=== PATIENT | male | born 1975 | race Caucasian/White ===

== ENCOUNTER 2017-01-23 12:07 | Emergency (ER) | payer BC ==
[~2017-01-23] VITALS: Ht 188 cm; Wt 133.8 kg
[~2017-01-23 12:07] MED LIST: ACET-93 PO; CETI10TA20 PO; FLUT9.9S NS; GABA-486 PO; IBUP-1780 PO; LISI1TAB6 PO; MECL-106 PO
--- OUTSIDE RECORDS SUMMARY | 2017-01-23 12:13 | XMS REPORT ---
Author CONRAD Taylor Organization [employer] Address Unknown Phone Unavailable Care Team Providers Care Grievance Manager Name Role Phone CONRAD YOUNG CP Unavailable Allergies No Known Allergies Problems Problem Type Condition ICD-9 Code Onset Dates Condition Status Problem Depressive disorder, not elsewhere classified 311 Active Problem Shortness of breath 786.05 Active Problem Essential hypertension, benign 401.1 Active Assessment Dental examination V72.2 Active Medications No Known Medications Procedures Procedure Coding System Code Date Billing Notes on claim CPT-4 EC109 November 23, 2014 Results No Known Results Summary Purpose [employer] Submission
--- OUTSIDE RECORDS SUMMARY | 2017-01-23 12:14 | XMS REPORT ---
Author Author POLA DAY Organization [employer] Address Unknown Phone Unavailable Care Team Providers Care Rail Specialist Name Role Phone POLA DAY CP Unavailable Allergies No Known Allergies Problems Problem Type Condition Code Onset Dates Condition Status Problem Depressive disorder, not elsewhere classified 311 Active Problem Shortness of breath 786.05 Active Problem Essential hypertension, benign 401.1 Active Assessment Encounter for immunization Z23 Active Medications No Known Medications Procedures Procedure Coding System Code Date SINGLE IMMUNIZATION ADMIN CPT-4 20093 Jun 12, 2015 FLUARIX QUAD (3 & UP)-GSK-2014 CPT-4 45238 Jun 12, 2015 Results No Known Results Immunizations Vaccine Administration Date FLUARIX QUAD (3 & UP)-GSK-2014Jun 12, 2015 Summary Purpose [employer] Submission
--- OUTSIDE RECORDS SUMMARY | 2017-01-23 12:14 | XMS REPORT | Continuity of Care Document ---
Demographics Preferred Language Unknown Marital Status Unknown Caodaism Affiliation Unknown Race Unknown Ethnic Group Unknown Author Author [facility] Address Unknown Phone Unavailable Allergies Active Description Code Type Severity Reaction Onset Reported/Identified Relationship to Patient Clinical Status Yes guaifenesin Drug Allergy 09/27/2009 Yes cortisone [id number] Drug Allergy Severe INCREASED BLOOD 07/10/2015 Yes guaifenesin [id number] Drug Allergy Moderate NAUSEA 07/10/2015 Yes diphenhydramine [id number] Drug Allergy Mild CAUSES SLEEPINE 07/10/2015 Medications Problems Date Dx Coded Attending Type Code Diagnosis Diagnosed By 09/27/2009 924.10 CONTUSION OF, LOWER LEG 09/27/2009 V06.5 DT, TETANUS-DIPHTHERIA [Td] ,TDAP 09/27/2009 924.10 CONTUSION OF, LOWER LEG 09/27/2009 V06.5 DT, TETANUS-DIPHTHERIA [Td] ,TDAP 09/27/2009 924.10 CONTUSION OF, LOWER LEG 09/27/2009 V06.5 DT, TETANUS-DIPHTHERIA [Td] ,TDAP 01/04/2010 701.9 UNSPECIFIED HYPERTROPHIC AND ATROPHIC CONDITIONS OF SKIN 01/04/2010 V77.91 SCREENING FOR LIPOID DISORDERS 01/04/2010 V81.2 SPECIAL SCREENING FOR OTHER AND UNSPECIFIED CARDIOVASCULAR CONDITIONS 01/04/2010 701.9 UNSPECIFIED HYPERTROPHIC AND ATROPHIC CONDITIONS OF SKIN 01/04/2010 V77.91 SCREENING FOR LIPOID DISORDERS 01/04/2010 V81.2 SPECIAL SCREENING FOR OTHER AND UNSPECIFIED CARDIOVASCULAR CONDITIONS 01/04/2010 701.9 UNSPECIFIED HYPERTROPHIC AND ATROPHIC CONDITIONS OF SKIN 01/04/2010 V77.91 SCREENING FOR LIPOID DISORDERS 01/04/2010 V81.2 SPECIAL SCREENING FOR OTHER AND UNSPECIFIED CARDIOVASCULAR CONDITIONS 07/01/2012 311 DEPRESSIVE DISORDER NOS 07/01/2012 786.05 SHORTNESS OF BREATH 07/01/2012 311 DEPRESSIVE DISORDER NOS 07/01/2012 786.05 SHORTNESS OF BREATH 07/01/2012 311 DEPRESSIVE DISORDER NOS 07/01/2012 786.05 SHORTNESS OF BREATH 07/31/2012 401.1 HYPERTENSION, BENIGN ESSENTIAL 07/31/2012 401.1 HYPERTENSION, BENIGN ESSENTIAL 07/10/2015 [place] DO, GOLD D Ot Z01.818 07/11/2015 ANAND DO, GOLD D Ot Z01.818 07/11/2015 ANAND DO, GOLD D Ot D12.3 07/11/2015 [place] DO, GOLD D Ot R19.4 07/11/2015 [place] DO, GOLD D Ot Z80.0 11/01/2015 SIVAKUMAR NEVES, GABBY Bhatia Ot G47.10 HYPERSOMNIA, UNSPECIFIED 11/01/2015 SIVAKUMAR NEVES, GABBY Bhatia Ot R06.83 SNORING 11/07/2015 SIVAKUMAR NEVES, GABBY Bhatia Ot G47.10 11/07/2015 SIVAKUMAR NEVES, GABBY Bhatia Ot R06.83 Procedures Results Encounters ACCT No. Visit Date/Time Discharge Status Pt. Type Provider Facility Loc./Unit Complaint [id number] 09/10/2012 13:22:00 09/10/2012 23: 59:59 CLS Outpatient [id number] 07/31/2012 11:07:00 07/31/2012 23: 59:59 CLS Outpatient [id number] 07/09/2012 14:04:00 07/09/2012 23: 59:59 CLS Outpatient
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
--- NOTE | 2017-01-23 13:22 | Diagnostic Imaging Report ---
Three views of the right knee. INDICATION: Injury. FINDINGS: No fracture, dislocation, or radiopaque foreign body. No suprapatellar effusion is evident. IMPRESSION: Unremarkable exam. Dictated by: Dictated on workstation # [id number]
--- NOTE | 2017-01-23 13:25 | Diagnostic Imaging Report ---
Two views of the right femur. INDICATION: Injury. FINDINGS: No fracture, dislocation or radiopaque foreign body. IMPRESSION: No fracture seen. Dictated by: Dictated on workstation # [id number]
--- NOTE | 2017-01-23 13:28 | Diagnostic Imaging Report ---
AP and frog lateral views of the right hip. INDICATION: Injury. FINDINGS: There is no fracture, dislocation or radiopaque foreign body. The right hip joint is unremarkable. IMPRESSION: Unremarkable exam. Dictated by: Dictated on workstation # [id number]
[2017-01-23] MEDS ORDERED: TRAM-42 PO (13:33)
--- NOTE | 2017-01-23 13:35 | Diagnostic Imaging Report ---
AP view of the pelvis. INDICATION: Injury. FINDINGS: No fracture, dislocation or radiopaque foreign body is seen in the pelvis or along the hip or SI joints. Satisfactory joint alignment is noted. No significant arthritic change seen. Calcifications of the pelvis are likely phleboliths. IMPRESSION: Unremarkable exam. Dictated by: Dictated on workstation # [id number]
[2017-01-23 14:16] VITALS: BP 140/88
== END 2017-01-23 14:17 | disposition home or self-care (01) ==
LOC: EDUNIT# 12:07 → ER 12:10
DX: S83.91XA Sprain of unspecified site of right knee, initial encounter (principal); M54.5 Low back pain; X50.0XXA Overexertion from strenuous movement or load, initial encounter
CPT/HCPCS: 72170; 73502; 73552; 73562; 99283

== ENCOUNTER → 2017-08-07 | Outpatient (CLI) | payer BC ==
[~2017-08-07] MED LIST changes: +TRAM-42 PO
--- NOTE | 2017-08-07 14:17 | Diagnostic Imaging Report ---
INDICATION: Shortness of air, sinus infection. TECHNIQUE: Two view chest 2:29 PM CORRELATION STUDY: None FINDINGS: The heart size, mediastinal configuration and pulmonary vasculature are within normal limits. The lungs are clear with no consolidating infiltrate. There is no significant pleural effusion or pneumothorax. Minimal rightward curvature thoracic spine. IMPRESSION: 1. No radiographic evidence for acute abnormality of the chest. Dictated by: Dictated on workstation # [id number]
== END ==
LOC: RAD 13:48
PROVIDERS: ATTEND Nurse Practitioner Family
DX: J30.9 Allergic rhinitis, unspecified (principal); R06.02 Shortness of breath
CPT/HCPCS: 71046

== ENCOUNTER → 2017-10-03 | Outpatient (CLI) | payer BC ==
[~2017-10-03] MED LIST changes: +RT-ALBUTEROL SULF 2.5 MG/3 ML PRE-MIX VIAL INH ONE; +RT-ALBUTEROL SULF 2.5 MG/3 ML PRE-MIX VIAL ONE
== END ==
LOC: RT 12:57
PROVIDERS: ATTEND Nurse Practitioner Family
DX: J30.9 Allergic rhinitis, unspecified (principal); R05 Cough; R06.00 Dyspnea, unspecified; R53.83 Other fatigue
CPT/HCPCS: 94060; 94726; 94729

== ENCOUNTER 2018-02-14 05:59 | Day surgery (SDC) | payer BC ==
[2018-02-14] VITALS (9 sets, daily range): BP systolic 121–130; BP diastolic 71–82
[~2018-02-14] VITALS: Ht 188 cm; Wt 90.7 kg
[~2018-02-14 05:59] MED LIST changes: -RT-ALBUTEROL SULF 2.5 MG/3 ML PRE-MIX VIAL INH ONE; -RT-ALBUTEROL SULF 2.5 MG/3 ML PRE-MIX VIAL ONE
[2018-02-14] MEDS ORDERED: RT-ALBUINH (06:15)
[2018-02-14] MEDS ORDERED: FLUT16SP22 (06:15)
[2018-02-14] MEDS ORDERED: SERT50TA2 (06:15)
[2018-02-14] MEDS ORDERED: MONT10TA24 (06:15)
[2018-02-14] MEDS ORDERED: LOSA100T28 (06:15)
[2018-02-14 06:40] LABS: BASOPHILS % (AUTO) 0 % (0-10); EOSINOPHILS % (AUTO) 0 % (0-10); HEMATOCRIT 43 % (40-54); HEMOGLOBIN 15.7 G/DL (13.3-17.7); LYMPHOCYTES # (AUTO) 1.3 X 10^3 (1.0-4.0); LYMPHOCYTES % (AUTO) 16 % (12-44); MEAN CORPUSCULAR HEMOGLOBIN 31 PG (25-34); MEAN CORPUSCULAR HGB CONC 36 G/DL (32-36); MEAN CORPUSCULAR VOLUME 85 FL (80-99); MONOCYTES # (AUTO) 0.3 X 10^3 (0.0-1.0); MONOCYTES % (AUTO) 3 % (0-12); NEUTROPHILS # (AUTO) 6.8 X 10^3 (1.8-7.8); NEUTROPHILS % (AUTO) 81 % (42-75); PLATELET COUNT 231 10^3/uL (130-400); RED CELL DISTRIBUTION WIDTH 14.1 % (10.0-14.5); WHITE BLOOD COUNT 8.4 10^3/uL (4.3-11.0)
[2018-02-14 06:45] LABS: BILIRUBIN,URINE NEGATIVE (NEGATIVE); CLARITY,URINE VERY CLOUDY; COLOR,URINE YELLOW; GLUCOSE, URINE (UA) NEGATIVE (NEGATIVE); KETONES,URINE NEGATIVE (NEGATIVE); LEUKOCYTE ESTERASE ,URINE NEGATIVE (NEGATIVE); NITRITE,URINE NEGATIVE (NEGATIVE); PH,URINE 7 (5-9); PROTEIN,URINE 1+ (NEGATIVE); UROBILINOGEN,URINE NORMAL (NORMAL)
[2018-02-14 06:56] LABS: AMORPHOUS SEDIMENT,UR LARGE AMOR PHOSPHATE /LPF; BACTERIA,URINE NEGATIVE /HPF
[2018-02-14 06:59] LABS: ALANINE AMINOTRANSFERASE 45 U/L (0-55); ALBUMIN 4.6 GM/DL (3.2-4.5); ALKALINE PHOSPHATASE 96 U/L (40-136); BILIRUBIN,TOTAL 0.7 MG/DL (0.1-1.0); BUN/CREATININE RATIO 23; CALCIUM 9.9 MG/DL (8.5-10.1); CARBON DIOXIDE 20 MMOL/L (21-32); CHLORIDE 110 MMOL/L (98-107); GFR ESTIMATED > 60; GLUCOSE 149 MG/DL (70-105); LIPASE 29 U/L (8-78); POTASSIUM 4.1 MMOL/L (3.6-5.0); SODIUM 140 MMOL/L (135-145); TOTAL PROTEIN 7.8 GM/DL (6.4-8.2)
--- NOTE | 2018-02-14 07:03 | ED Abdominal Pain ---
General Chief Complaint: Abdominal/GI Problems Stated Complaint: ABD PAIN Nursing Triage Note: patient reports epigastric pain radiating to his back starting after eating mushroom pizza at 2100 last night. patient reports having a history of GERD and not taking his prilosec as 'I didn't think I needed it' for a couple days. Patient reports having a similar event about 1 year ago and having a 'green lizard' that helped. Patient reports having diarrhea x 1 and emesis x 1. denies SOA, diaphoresis. Sepsis Screen: No Definite Risk History of Present Illness Date Seen by Provider: Feb 14, 2018 Time Seen by Provider: 07:00 Initial Comments The patient is a 42-year-old white male who presents with complaints of abdominal pain and vomiting. He reports that last evening he had a pizza at about 2100 hours. He then had abdominal discomfort through the night. He states he has a history of GERD but has not been troubled lately and had not taken his Prilosec. After arriving here he vomited and materials were recognizable from his pizza including sausage and black olives. Timing/Duration: 12 Hours Severity/Quality: Moderate Location: Epigastric Radiation: No Radiation Modifying Factors: Improves With Eating Allergies and Home Medications Allergies Coded Allergies: cortisone (Verified Allergy, Severe, INCREASED BLOOD PRESSURE, 07/10/15) guaifenesin (Verified Allergy, Intermediate, NAUSEA, 07/10/15) diphenhydramine (Verified Allergy, Mild, CAUSES SLEEPINESS, 07/10/15) acetaminophen (Verified Allergy, Unknown, 01/23/17) hydrocodone (Verified Allergy, Unknown, 01/23/17) Uncoded Allergies: MUSCLE REXLANT (Allergy, Unknown, 01/23/17) Home Medications Acetaminophen 500 Mg Tablet, 500 MG PO DAILY, (Reported) Cetirizine HCl 10 Mg Tablet, 10 MG PO DAILY, (Reported) Fluticasone Propionate 9.9 Ml [place].susp, 2 SPR NS DAILY, (Reported) Gabapentin 100 Mg Capsule, 100 MG PO TID, (Reported) Ibuprofen 800 Mg Tablet, 800 MG PO BID PRN for PAIN, (Reported) Lisinopril/Hydrochlorothiazide 1 Each Tablet, 1 EACH PO DAILY, (Reported) Meclizine HCl 25 Mg Tablet, 25 MG PO DAILY, (Reported) Tramadol HCl 50 Mg Tablet, 50 MG PO Q4H Prescribed by: DONNA COSME on 01/23/17 1333 Patient Home Medication List Home Medication List Reviewed: Yes Review of Systems Constitutional: see HPI EENTM: No Symptoms Reported Respiratory: No Symptoms Reported Cardiovascular: No Symptoms Reported Gastrointestinal: See HPI Genitourinary: No Symptoms Reported Musculoskeletal: no symptoms reported Skin: no symptoms reported Psychiatric/Neurological: No Symptoms Reported Endocrine: No Symptoms Reported Hematologic/Lymphatic: No Symptoms Reported Past Pskgzgp-Dfbnbd-Vpfanw Hx Patient Social History Alcohol Use: Denies Use Recreational Drug Use: No Smoking Status: Never a Smoker Recent Foreign Travel: No Contact w/Someone Who Travel: No Recent Infectious Disease Expo: No Recent Hopitalizations: No Physical Abuse: No Sexual Abuse: No Immunizations Up To Date Date of Influenza Vaccine: May 11, 2015 Past Medical History Surgeries: Yes (DENTAL, EGD) Eye Surgery, Orthopedic Respiratory: No Cardiac: Yes Hypertension Neurological: No Reproductive Disorders: No Genitourinary: No Gastrointestinal: No Musculoskeletal: Yes (RIGHT HIP/SI JOINT PAIN) Chronic Back Pain Endocrine: No HEENT: No Cancer: No Psychosocial: No Nursing Suicide Risk Score: 0 Integumentary: No Blood Disorders: No Physical Exam Vital Signs Vital Signs - First Documented 02/14/18 06:09 Temp 98.4 Pulse 73 Resp 18 B/P (MAP) 168/126 (140) Pulse Ox 100 Capillary Refill : Less Than 3 Seconds Height/Weight/BMI Height: 6'2.00" Weight: 200lbs. oz. 90.322094et; 37.87 BMI Method:Stated General Appearance: moderate distress HEENT: normal ENT inspection Neck: full range of motion Respiratory: chest non-tender, lungs clear, normal breath sounds, no respiratory distress, no accessory muscle use Cardiovascular: normal peripheral pulses, regular rate, rhythm, no edema, no gallop, no JVD, no murmur Gastrointestinal: normal bowel sounds, non tender, soft, no organomegaly, no pulsatile mass Extremities: normal range of motion, non-tender, normal inspection, no pedal edema, no calf tenderness, normal capillary refill, pelvis stable Back: normal inspection Neurologic/Psychiatric: felt hanger II-XII nml as tested, no motor/sensory deficits, alert, normal mood/affect, oriented x 3 Lymphatic: no adenopathy Progress/Results/Core Measures Results/Orders Lab Results Laboratory Tests Test 7/21/18 06:25 02/14/18 06:38 Range/Units White Blood Count 8.4 4.3-11.0 10^3/uL Red Blood Count 5.10 4.35-5.85 10^6/uL Hemoglobin 15.7 13.3-17.7 G/DL Hematocrit 43 40-54 % Mean Corpuscular Volume 85 80-99 FL Mean Corpuscular Hemoglobin 31 25-34 PG Mean Corpuscular Hemoglobin Concent 36 32-36 G/DL Red Cell Distribution Width 14.1 10.0-14.5 % Platelet Count 231 130-400 10^3/uL Mean Platelet Volume 10.0 7.4-10.4 FL Neutrophils (%) (Auto) 81 H 42-75 % Lymphocytes (%) (Auto) 16 12-44 % Monocytes (%) (Auto) 3 0-12 % Eosinophils (%) (Auto) 0 0-10 % Basophils (%) (Auto) 0 0-10 % Neutrophils # (Auto) 6.8 1.8-7.8 X 10^3 Lymphocytes # (Auto) 1.3 1.0-4.0 X 10^3 Monocytes # (Auto) 0.3 0.0-1.0 X 10^3 Eosinophils # (Auto) 0.0 0.0-0.3 10^3/uL Basophils # (Auto) 0.0 0.0-0.1 10^3/uL Sodium Level 140 135-145 MMOL/L Potassium Level 4.1 3.6-5.0 MMOL/L Chloride Level 110 H 98-107 MMOL/L Carbon Dioxide Level 20 L 21-32 MMOL/L Anion Gap 10 5-14 MMOL/L Blood Urea Nitrogen 21 H 7-18 MG/DL Creatinine 0.90 0.60-1.30 MG/DL Estimat Glomerular Filtration Rate > 60 BUN/Creatinine Ratio 23 Glucose Level 149 H 70-105 MG/DL Calcium Level 9.9 8.5-10.1 MG/DL Total Bilirubin 0.7 0.1-1.0 MG/DL Aspartate Amino Transf (AST/SGOT) 23 5-34 U/L Alanine Aminotransferase (ALT/SGPT) 45 0-55 U/L Alkaline Phosphatase 96 40-136 U/L Total Protein 7.8 6.4-8.2 GM/DL Albumin 4.6 H 3.2-4.5 GM/DL Lipase 29 8-78 U/L Urine Color YELLOW Urine Clarity VERY CLOUDY H Urine pH 7 5-9 Urine Specific [place] 1.010 L 1.016-1.022 Urine Protein 1+ H NEGATIVE Urine Glucose (UA) NEGATIVE NEGATIVE Urine Ketones NEGATIVE NEGATIVE Urine Nitrite NEGATIVE NEGATIVE Urine Bilirubin NEGATIVE NEGATIVE Urine Urobilinogen NORMAL NORMAL MG/DL Urine Leukocyte Esterase NEGATIVE NEGATIVE Urine RBC (Auto) NEGATIVE NEGATIVE Urine RBC NONE /HPF Urine WBC NONE /HPF Urine Crystals PRESENT H /LPF Urine Amorphous Sediment LARGE FRANDY PHOSPHATE H /LPF Urine Bacteria NEGATIVE /HPF Urine Casts NONE /LPF Urine Mucus NEGATIVE /LPF Urine Culture Indicated NO My Orders Orders - ERNESTINA GAMBINO MD Cbc With Automated Diff (02/14/18 06:26) Comprehensive Metabolic Panel (02/14/18 06:26) Lipase (02/14/18 06:26) Ua Culture If Indicated (02/14/18 06:26) Pantoprazole Injection (Protonix Injecti (02/14/18 07:15) Abdomen/Kub 1view (02/14/18 07:04) Ondansetron Injection (Zofran Injectio (02/14/18 08:00) Ns Iv 1000 Ml (Sodium Chloride 0.9%) (02/14/18 08:15) Promethazine Injection (Phenergan Injec (02/14/18 08:45) Ct Abdomen/Pelvis W (02/14/18 08:41) Iohexol Injection (Omnipaque 350 Mg/Ml 1 (02/14/18 09:15) Sodium Chloride Flush (Catheter Flush Sy (02/14/18 09:15) Ns (Ivpb) (Sodium Chloride 0.9%) (02/14/18 09:15) Pharmacy Communication (Pharmacy Communi (02/14/18 09:01) Medications Given in ED Current Medications Medications Dose Ordered Sig/Sherry Route Start Time Stop Time Status Last Admin Dose Admin Iohexol 100 ml ONCE ONCE IV 02/14/18 09:15 02/14/18 09:16 DC 02/14/18 09:18 100 ML Ondansetron HCl 8 mg ONCE ONCE IVP 02/14/18 08:00 02/14/18 08:01 DC 02/14/18 08:04 8 MG Pantoprazole 40 mg ONCE ONCE IV 02/14/18 07:15 02/14/18 07:16 DC 02/14/18 07:17 40 MG Promethazine HCl 25 mg ONCE ONCE IVP 02/14/18 08:45 02/14/18 08:46 DC 02/14/18 08:50 25 MG Sodium Chloride 10 ml NEEDED PRN IV 02/14/18 09:15 02/14/18 09:19 10 ML Sodium Chloride 250 ml ONCE ONCE IV 02/14/18 09:15 02/14/18 09:16 DC 02/14/18 09:18 80 ML Vital Signs/I&O 02/14/18 06:09 Temp 98.4 Pulse 73 Resp 18 B/P (MAP) 168/126 (140) Pulse Ox 100 Blood Pressure Mean: 140 Departure Communication (Admissions) 1010 CT report came back positive for gallstones. Discussed with Dr. Hdz and he will come to the emergency room to evaluate. Dr. Hdz has been to the emergency room. (1111) patient will go to the OR for cholecystectomy. Impression Primary Impression: cholecystitis Disposition: ADMITTED INPATIENT Condition: Stable/Unchanged Admissions Decision to Admit Reason: Admit from ER (General) Time/Decision to Admit Time: 11:08 Departure-Patient Inst. Referrals: EVERTON AGUILERA MD (PCP) Primary Care Physician OMAR RAPP (Family) Primary Care Physician ERNESTINA GAMBINO MD Feb 14, 2018 07:03
[2018-02-14] MEDS ORDERED: PANTOPRAZOLE 40 MG/10 ML (PROTONIX) VIAL IV ONE (07:15)
--- NOTE | 2018-02-14 07:46 | Diagnostic Imaging Report ---
INDICATION: Abdominal pain with nausea. 2 views were obtained. FINDINGS: The lung bases are clear. Bowel gas pattern is nonspecific. There is no free air. There are no abnormal abdominal calcifications. IMPRESSION: Nonspecific bowel gas pattern. Dictated by: Dictated on workstation # [id number]
[2018-02-14] MEDS ORDERED: ONDANSETRON 4 MG/2 ML (SDV) Z0FRAN IVP ONE ×2 (08:00→15:15)
[2018-02-14] MEDS ORDERED: NS IV 1000 ML 1,000 ML IV SCH (08:15)
[2018-02-14] MEDS ORDERED: PROMETHAZINE INJ 25 MG/ML (PHENERGAN) AMP IVP ONE (08:45)
[2018-02-14] MEDS ORDERED: IOHEXOL 350 MG/ML 100 ML (OMNIPAQUE 350) VIAL IV ONE (09:15)
[2018-02-14] MEDS ORDERED: CATHETER FLUSH 10 ML SYR IV PRN (09:15)
[2018-02-14] MEDS ORDERED: NS 250 ML (IVPB) BAG IV ONE (09:15)
--- NOTE | 2018-02-14 09:26 | Diagnostic Imaging Report ---
PROCEDURE: CT abdomen and pelvis with contrast. TECHNIQUE: Multiple contiguous axial images were obtained through the abdomen and pelvis after administration of intravenous contrast. INDICATION: Abdominal pain with nausea and vomiting. FINDINGS: The heart size is normal. The lungs are clear. The liver is normal in size without focal lesions. There is cholelithiasis. There is some questionable gallbladder wall thickening. The spleen is normal. Pancreas and adrenal glands are unremarkable. Kidneys are normal in appearance. The aorta is nonaneurysmal. The appendix is normal. Bowel gas pattern is nonspecific. The bladder is normal. There is no pelvic mass or adenopathy. There is no ascites. There is no free air. There are no focal inflammatory changes. There are minimal degenerative changes in the spine. IMPRESSION: Cholelithiasis with questionable gallbladder wall thickening. Recommend clinical correlation, if warranted followup with right upper quadrant ultrasound. No other acute abnormality in the abdomen or pelvis. Specifically, the appendix is normal in appearance. Dictated by: Dictated on workstation # [id number]
--- OUTSIDE RECORDS SUMMARY | 2018-02-14 10:52 | XMS REPORT ---
Author Author HECTOR CONRAD [facility] QUESADA Address [address] [place] [address] Care Team Providers Care Adjunct Professor Of English Name Role Phone CONRAD YOUNG Unavailable PROBLEMS Type Condition ICD9-CM Code [id number] Code Onset Dates Condition Status SNOMED Code Problem Depressive disorder, not elsewhere classified 311 Active 87042061 Problem Essential hypertension, benign 401.1 Active 1234351 Problem Shortness of breath 786.05 Active 110852834 ALLERGIES Substance Reaction Event Type Date Status Cortisone Unknown Drug Allergy May, Active Guaifenesin Unknown Drug Allergy May, Active hydrocodone Unknown Non Drug Allergy May, Active horse radish Unknown Non Drug Allergy May, Active aspirin Unknown Non Drug Allergy May, Active ENCOUNTERS Encounter Location Date Diagnosis [facility] [id number] [id number] [id number] November, Dental examination Z01.20 [facility] [address] [id number], [place] [id number] November, Dental examination Z01.20 [facility] [address] [id number], [place] [id number] May, Dental examination Z01.20 [facility] [address] [facility] [address] [id number], [place] [id number] Apr, Dental examination Z01.20 [facility] [address] [facility] [address] [id number], [place] [id number] Jan, Dental examination Z01.20 [facility] [address] [facility] [address] [id number][place] [id number] November, Dental examination Z01.20 [facility] [id number], [place] [id number] Oct, Dental examination Z01.20 [facility] Akers0 [facility] [id number], [place] [id number] Sep, Encounter for dental examination and cleaning without abnormal findings Z01.20 [facility] LOPEZALVARO [address] [facility] [id number] C[place] [id number] May, Encounter for immunization Z23 [facility] BENOITQUESADA Oswald[address] [place] [address] [id number], [place] [id number] Jan, Dental examination V72.2 [facility] BENOITQU[facility]ADA Judy [facility] [id number], [place] [id number] Oct, Dental examination V72.2 [facility] [id number] [place] [phone] Oct, [facility] [id number] [place] [phone] Oct, [facility] [id number] [place] [id number] Aug, [facility] [address] [place] [phone] Jul, [facility] [id number] [place] [id number] Jun, [facility] [address] [address] Jun, [facility] [id number] [address] Dec, [facility] [id number] [place] [phone] Dec, IMMUNIZATIONS No Known Immunizations SOCIAL HISTORY Never Assessed REASON FOR VISIT Fredrick PLAN OF CARE Activity Details Follow Up 6 Months Reason: VITAL SIGNS Blood pressure systolic 124 mmHg 2017-06-18 Blood pressure diastolic 75 mmHg 2017-06-18 MEDICATIONS Medication Instructions Dosage Frequency Start Date End Date Duration Status sertraline 50 mg 1.5 tablet by Oral route 1 time per day Aug, Active Flonase Active Tylenol Active Ibuprofen Active Lisinopril-Hydrochlorothiazide Active RESULTS No Results PROCEDURES Procedure Date Ordered Result Body Site PERIODIC ORAL EXAMINATION Jun 18, 2017 BITEWINGS - FOUR FILMS Jun 18, 2017 TOPICAL FLUORIDE VARNISH Jun 18, 2017 PROPHYLAXIS - ADULT Jun 18, 2017 INSTRUCTIONS MEDICATIONS ADMINISTERED No Known Medications MEDICAL (GENERAL) HISTORY Type Description Date Medical History HBP Medical History Currently on antibiotics for Bronchitis 06/18/2017 Surgical History right ring finger for torn ligament 07/2016
--- OUTSIDE RECORDS SUMMARY | 2018-02-14 10:52 | XMS REPORT ---
Author Author CONRAD YOUNG [facility] Address [address] [place] [address] Care Team Providers Care Generator Operator Name Role Phone CONRAD YOUNG Unavailable PROBLEMS Type Condition ICD9-CM Code [id number] Code Onset Dates Condition Status SNOMED Code Problem Encounter for dental examination and cleaning without abnormal findings Z01.20 Active 874441436 Problem Depressive disorder, not elsewhere classified 311 Active 96628844 Problem Essential hypertension, benign 401.1 Active 2161881 Problem Shortness of breath 786.05 Active 327687805 ALLERGIES Substance Reaction Event Type Date Status Cortisone Unknown Drug Allergy November, Active Guaifenesin Unknown Drug Allergy November, Active horse radish Unknown Non Drug Allergy November, Active aspirin Unknown Non Drug Allergy November, Active hydrocodone Unknown Non Drug Allergy November, Active SOCIAL HISTORY Never Assessed PLAN OF CARE Activity Details Follow Up Restoratives. 6month prophy and LEON Reason: VITAL SIGNS Blood pressure systolic 131 mmHg 2016-12-09 Blood pressure diastolic 71 mmHg 2016-12-09 MEDICATIONS Medication Instructions Dosage Frequency Start Date End Date Duration Status Lisinopril-Hydrochlorothiazide Active sertraline 50 mg 1.5 tablet by Oral route 1 time per day Aug, Active Flonase Active Ibuprofen Active Tylenol Active RESULTS No Results PROCEDURES Procedure Date Ordered Result Body Site PROPHYLAXIS - ADULT December 09, 2016 TOPICAL FLUORIDE VARNISH December 09, 2016 IMMUNIZATIONS No Known Immunizations MEDICAL (GENERAL) HISTORY Type Description Date Medical History HBP Surgical History right ring finger for torn ligament 07/2016
--- OUTSIDE RECORDS SUMMARY | 2018-02-14 10:52 | XMS REPORT ---
Author Author NEFTALI MOROCHO [facility] QUESADA Address [address] [place] [address] Care Team Providers Care Sampler Radioactive Waste Name Role Phone NEFTALI MOROCHO Unavailable PROBLEMS Type Condition ICD9-CM Code [id number] Code Onset Dates Condition Status SNOMED Code Problem Depressive disorder, not elsewhere classified 311 Active 94198858 Problem Essential hypertension, benign 401.1 Active 3421187 Problem Shortness of breath 786.05 Active 292880072 ALLERGIES Substance Reaction Event Type Date Status Cortisone Unknown Drug Allergy Apr, Active Guaifenesin Unknown Drug Allergy Apr, Active horse radish Unknown Non Drug Allergy Apr, Active aspirin Unknown Non Drug Allergy Apr, Active hydrocodone Unknown Non Drug Allergy Apr, Active ENCOUNTERS Encounter Location Date Diagnosis [facility] [id number] [facility] [id number] [phone] November, [address] [id number], [place] [id number] May, Dental examination Z01.[address] [id number], [place] [id number] Apr, Dental examination Z01.20 [place] [address] [facility] [id number], [place] [id number] Jan, Dental examination Z01.20 [place] [address] [facility] [id number], [place] [id number] November, Dental examination Z01.20 [place] [address] [facility] [id number], [place] [id number] Oct, Dental examination Z01.20 [facility] [address] [id number], [place] [id number] Sep, Encounter for dental examination and cleaning without abnormal findings Z01.20 [facility] [id number] [id number] May, Encounter for immunization Z23 [facility] Akers0 [facility] [address] [id number], [place] [id number] Jan, Dental examination V72.2 [facility] [address] [facility] [address] [id number], [place] [id number] Oct, Dental examination V72.2 [facility] [address]65[address], [place] [address] Oct, [facility] [id number] [place] [phone] Oct, [facility] [id number] [place] [phone] Aug, [facility] [id number] [place] [id number] Jul, [place] [id number] [place] [phone] Jun, [facility] [id number] [place] [phone] Jun, [facility] [id number] [place] [phone] Dec, [facility] [address], [place] [address] Dec, IMMUNIZATIONS No Known Immunizations SOCIAL HISTORY Never Assessed REASON FOR VISIT broken tooth/ wants te PLAN OF CARE Activity Details Follow Up prn Reason:hygiene VITAL SIGNS Blood pressure systolic 140 mmHg 2017-05-07 Blood pressure diastolic 84 mmHg 2017-05-07 MEDICATIONS Medication Instructions Dosage Frequency Start Date End Date Duration Status Lisinopril-Hydrochlorothiazide Active sertraline 50 mg 1.5 tablet by Oral route 1 time per day Aug, Active Flonase Active Tylenol Active Ibuprofen Active RESULTS No Results PROCEDURES Procedure Date Ordered Result Body Site LTD ORAL EVALUATION - PROBLEM FOCUS May 07, 2017 PANORAMIC FILM SEE ALSO CODE 06520 May 07, 2017 INSTRUCTIONS MEDICATIONS ADMINISTERED No Known Medications MEDICAL (GENERAL) HISTORY Type Description Date Medical History HBP Medical History Currently on antibiotics for Bronchitis 06/18/2017 Surgical History right ring finger for torn ligament 07/2016
--- NOTE | 2018-02-14 11:07 | Consultation ---
History of Present Illness History of Present Illness Patient Consulted On(petty/time) 02/14/18 11:02 Date Seen by Provider: Feb 14, 2018 Time Seen by Provider: 11:02 History of Present Illness consult requested by Dr. Gonzalez for epigastric abdominal pain cholelithiasis/ cholecystitis Seen and evaluated in the emergency department patient is a 42 year old male who ate pizza last night and began having epigastric abdominal pain. He has had multiple episode of pain like this but it comes and goes. This time it has continued to be persistent. The pain is in the epigastric region and goes around towards his back along the right side. Patient has had nausea and episodes of emesis. Food always has seemed to make the pain worse. The pain is moderate to severe at this point right now it' s a 6 out of 10. Patient was [address] scan that I reviewed demonstrating cholelithiasis and gallbladder wall thickening suggestive of cholecystitis. He denies any fever sweats chills shortness of breath or chest pain. Allergies and Home Medications Allergies Coded Allergies: cortisone (Verified Allergy, Severe, INCREASED BLOOD PRESSURE, 07/10/15) guaifenesin (Verified Allergy, Intermediate, NAUSEA, 07/10/15) diphenhydramine (Verified Allergy, Mild, CAUSES SLEEPINESS, 07/10/15) acetaminophen (Verified Allergy, Unknown, 01/23/17) hydrocodone (Verified Allergy, Unknown, 01/23/17) Uncoded Allergies: MUSCLE REXLANT (Allergy, Unknown, 01/23/17) Home Medications Acetaminophen 500 Mg Tablet, 500 MG PO DAILY, (Reported) Cetirizine HCl 10 Mg Tablet, 10 MG PO DAILY, (Reported) Fluticasone Propionate 9.9 Ml Wilmot.susp, 2 SPR NS DAILY, (Reported) Gabapentin 100 Mg Capsule, 100 MG PO TID, (Reported) Ibuprofen 800 Mg Tablet, 800 MG PO BID PRN for PAIN, (Reported) Lisinopril/Hydrochlorothiazide 1 Each Tablet, 1 EACH PO DAILY, (Reported) Meclizine HCl 25 Mg Tablet, 25 MG PO DAILY, (Reported) Tramadol HCl 50 Mg Tablet, 50 MG PO Q4H Prescribed by: DONNA COSME on 01/23/17 [id number] Patient Home Medication List Home Medication List Reviewed: Yes Past Nuyipjn-Fvczvc-Ojxwmu Hx Patient Social History Alcohol Use: Denies Use Recreational Drug Use: No Smoking Status: Never a Smoker Recent Foreign Travel: No Contact w/Someone Who Travel: No Recent Infectious Disease Expo: No Recent Hopitalizations: No Immunizations Up To Date Date of Influenza Vaccine: May 11, 2015 Surgeries History of Surgeries: Yes (DENTAL, EGD) Surgeries: Eye Surgery, Orthopedic Respiratory History of Respiratory Disorde: No Cardiovascular History of Cardiac Disorders: Yes Cardiac Disorders: Hypertension Neurological History of Neurological Disord: No Reproductive System Hx Reproductive Disorders: No Genitourinary History of Genitourinary Disor: No Gastrointestinal History of Gastrointestinal Di: No Musculoskeletal History of Musculoskeletal Dis: Yes (RIGHT HIP/SI JOINT PAIN) Musculoskeletal Disorders: Chronic Back Pain Endocrine History of Endocrine Disorders: No HEENT History of HEENT Disorders: No Cancer History of Cancer: No Psychosocial History of Psychiatric Problem: No Integumentary History of Skin or Integumenta: No Blood Transfusions History of Blood Disorders: No Family Medical History Significant Family History: No Pertinent Family Hx Review of Systems-General Constitutional: no symptoms reported EENTM: no symptoms reported Respiratory: no symptoms reported Cardiovascular: no symptoms reported Gastrointestinal: see HPI Genitourinary: no symptoms reported Musculoskeletal: no symptoms reported Skin: no symptoms reported Psychiatric/Neurological: No Symptoms Reported Physical Exam-General Problems Physical Exam Vital Signs Vital Signs - First Documented 02/14/18 06:09 Temp 98.4 Pulse 73 Resp 18 B/P (MAP) 168/126 (140) Pulse Ox 100 Capillary Refill : Less Than 3 Seconds General Appearance: mild distress HEENT: PERRL/EOMI, normal ENT inspection Neck: supple Respiratory: no respiratory distress, no accessory muscle use Cardiovascular: regular rate, rhythm Gastrointestinal: tenderness (epigastric abdominal pain) Rectal: deferred Back: normal inspection Extremities: non-tender, normal inspection Neurologic/Psychiatric: alert, normal mood/affect, oriented x 3 Skin: normal color, warm/dry Lymphatic: no adenopathy Data Review Labs Laboratory Tests 02/14/18 06:25: White Blood Count 8.4, Red Blood Count 5.10, Hemoglobin 15.7, Hematocrit 43, Mean Corpuscular Volume 85, Mean Corpuscular Hemoglobin 31, Mean Corpuscular Hemoglobin Concent 36, Red Cell Distribution Width 14.1, Platelet Count 231, Mean Platelet Volume 10.0, Neutrophils (%) (Auto) 81H, Lymphocytes (%) (Auto) 16 , Monocytes (%) (Auto) 3, Eosinophils (%) (Auto) 0, Basophils (%) (Auto) 0, Neutrophils # (Auto) 6.8, Lymphocytes # (Auto) 1.3, Monocytes # (Auto) 0.3, Eosinophils # (Auto) 0.0, Basophils # (Auto) 0.0, Sodium Level 140, Potassium Level 4.1, Chloride Level 110H, Carbon Dioxide Level 20L, Anion Gap 10, Blood Urea Nitrogen 21H, Creatinine 0.90, Estimat Glomerular Filtration Rate > 60, BUN /Creatinine Ratio 23, Glucose Level 149H, Calcium Level 9.9, Total Bilirubin 0.7 , Aspartate Amino Transf (AST/SGOT) 23, Alanine Aminotransferase (ALT/SGPT) 45, Alkaline Phosphatase 96, Total Protein 7.8, Albumin 4.6H, Lipase 29 02/14/18 06:38: Urine Color YELLOW, Urine Clarity VERY CLOUDYH, Urine pH 7, Urine Specific [place] 1.010L, Urine Protein 1+H, Urine Glucose (UA) NEGATIVE, Urine Ketones NEGATIVE, Urine Nitrite NEGATIVE, Urine Bilirubin NEGATIVE, Urine Urobilinogen NORMAL, Urine Leukocyte Esterase NEGATIVE, Urine RBC (Auto) NEGATIVE, Urine RBC NONE, Urine WBC NONE, Urine Crystals PRESENTH, Urine Amorphous Sediment LARGE FRANDY PHOSPHATEH, Urine Bacteria NEGATIVE, Urine Casts NONE, Urine Mucus NEGATIVE , Urine Culture Indicated NO Assessment/Plan Assessment/Plan Assessment/Plan cholelithiasis, cholecystitis, epigastric abdominal pain. patient was explained risks and benefits of laparoscopic cholecystectomy intraoperative cholangiogram all other indicated procedures. Patient understands risk and benefits and wishes to proceed. Patient is nothing by mouth. Patient to OR. GOLD ANAND DO Feb 14, 2018 11:07
[2018-02-14] MEDS ORDERED: ceFAZolin 2 GM IV Premixed 50 ML IV ONE (11:15)
[2018-02-14] MEDS ORDERED: fentaNYL INJECTION 100 MCG/2 ML AMP ONE (11:20)
[2018-02-14] MEDS ORDERED: ONDANSETRON 4 MG/2 ML (SDV) Z0FRAN ONE ×2 (11:20→12:23)
[2018-02-14] MEDS ORDERED: DEXAMETHASONE 10 MG/ML (DECADRON) 1 ML VIAL ONE (11:20)
[2018-02-14] MEDS ORDERED: LIDOCAINE PF 2% 5 ML (XYLOCAINE) VIAL ONE (11:20)
[2018-02-14] MEDS ORDERED: proPOfol 200 MG/20 ML (DIPRIVAN) VIAL IV ONE (11:20)
[2018-02-14] MEDS ORDERED: ROCURONIUM 10 MG/ML 5 ML SYRINGE IV ONE (11:20)
[2018-02-14] MEDS ORDERED: MIDAZOLAM 2 MG/2 ML (VERSED) VIAL ONE (11:20)
[2018-02-14] MEDS ORDERED: SEVOFLURANE (ULTANE) 15 ML INHAL SOLN ONE ×2 (11:31→13:20)
[2018-02-14] MEDS ORDERED: LIDOCAINE 1% INJ 20 ML 20 ML VIAL ONE (11:40)
[2018-02-14] MEDS ORDERED: BUPIVACAINE 0.5% 30 ML (SENSORCAINE) VIAL ONE (11:42)
[2018-02-14] MEDS ORDERED: ceFAZolin 1,000 MG (ANCEF) VIAL ONE (12:09)
[2018-02-14] MEDS: LACTATED RINGERS 1,000 ML IV PRN ×2 (12:13→12:45)
[2018-02-14] MEDS ORDERED: morphine INJ 10 MG/ML 1ML (SYR OR VIAL) ONE (12:22)
[2018-02-14] MEDS ORDERED: MEPERIDINE (DEMEROL) INJ 50 MG/ML ONE (12:22)
[2018-02-14] MEDS ORDERED: GLYCOPYRROLATE 0.2 MG/ML (ROBINUL) 2 ML VIAL ONE (12:58)
[2018-02-14] MEDS ORDERED: NEOSTIGMINE 1 MG/ML 5 ML SYRINGE ONE (12:58)
[2018-02-14] MEDS ORDERED: SUCCINYLCHOLINE INJ 100 MG/5 ML SYR ONE (12:59)
--- NOTE | 2018-02-14 13:04 | Progress Note-Post Operative ---
Post-Operative Progess Note Surgeon (s)/Water Valve Repairer (s) Surgeon GOLD ANAND DO Water Valve Repairer: Dr. Carney Pre-Operative Diagnosis change in bowel habits, family history of colon cancer Post-Operative Diagnosis cholelithiasis cholecystitis Procedure & Operative Findings Date of Procedure 02/14/18 Procedure Performed/Findings lap doug c ioc Anesthesia Type gen Estimated Blood Loss Estimated blood loss (mL): min Specimens/Packing Specimens Removed gallbladder GOLD ANAND DO Feb 14, 2018 13:04
[2018-02-14] MEDS ORDERED: ACHD5005 PO (13:05)
--- NOTE | 2018-02-14 13:07 | Discharge Inst-Simple/Standard ---
Discharge Inst-Standard Discharge Medications New, Converted or Re-Newed RX: RX on Chart Patient Instructions/Follow Up Plan of Care/Instructions/FU: 2 weeks Andreina Activity as Tolerated: No Discharge Diet: Regular Diet Other Inst to Patient Follow up Appt: Make appointment for 2 weeks. Instructions: No lifting greater than 10 pounds. No strenuous activity. May shower in 24 hours, no tub bath or soaking. Use incentive spirometer at home as directed. No Smoking Skin/Wound Care: May remove bandages in 24 hours. you have special glue it will fall off on its own. Symptoms to Report: Appetite Changes, Extremity Discoloration, Numbness/Tingling, Swelling Increased , Bleeding Excessive, Eyesight Changes, Pain Increased, Urine Color Change, Constipation(Persistent), Fever over 101 degree F, Pain/Pressure in chest, Urinating Difficulty, Cough Up/Vomit Blood, Heart Beat Irreg/Pounding, Pain/ Pressure in jaw, Vaginal Bleeding Increase, Cramps in feet or legs, Lightheadedness, Pain/Pressure in shoulder, Diarrhea(Persistent), Memory Changes Suddenly, Questions/Concerns, Weight gain consecutive days, Dizziness/ Fainting, Nausea/Vomiting, Shortness of Breath, Weight gain over 2 pounds. If eyes or skin turn yellow notify physician. If questions or concerns contact your physician Or seek help at emergency department. GOLD ANAND DO Feb 14, 2018 13:07
[2018-02-14] MEDS: morphine INJ 10 MG/ML 1ML (SYR OR VIAL) IVP PRN ×2 (13:50→13:55)
[2018-02-14] MEDS ORDERED: HYDROmorphone 1 MG/ML (DILAUDID) 1 ML SYRINGE IV PRN (14:00)
[2018-02-14] MEDS ORDERED: ONDANSETRON 4 MG/2 ML (SDV) Z0FRAN IVP PRN (14:00)
--- NOTE | 2018-02-14 18:32 | OPERATIVE REPORT ---
DATE OF SERVICE: 02/14/2018 PREOPERATIVE DIAGNOSES: Cholelithiasis, cholecystitis, epigastric abdominal pain. POSTOPERATIVE DIAGNOSES: Cholelithiasis, cholecystitis, epigastric abdominal pain. PROCEDURE: Laparoscopic cholecystectomy with intraoperative cholangiogram. SURGEON: Gold Hdz DO GUMMING MACHINE OPERATOR: Dr. Carney, assisted in retraction, dissection and closure. ESTIMATED BLOOD LOSS: Minimal. COMPLICATIONS: None. INDICATIONS: The patient is a 42-year-old male who began having epigastric abdominal pain, nausea and vomiting last night. It was persistent. He was evaluated in the Emergency Department and symptoms and CT scan consistent with cholelithiasis, cholecystitis. He understands risks and benefits of procedure and wished to proceed with procedure. Consent was signed in the chart. DESCRIPTION OF PROCEDURE: The patient was taken to the operating suite, was prepped and draped in sterile fashion. Surgical pause was performed. Superior to the umbilicus, a local anesthetic was infiltrated into the area. An 11 blade scalpel was used to make an incision and cautery was used to dissect down to the fascia, which was then scored and elevated. The abdomen was then entered and a balloon trocar was inserted into the abdomen and pneumoperitoneum was achieved. Under direct visualization of the laparoscope, a 5 mm trocar was then placed in the subxiphoid region and two 5 mm trocars were placed in the right upper quadrant. The gallbladder had several adhesions to it, which was then grasped, elevated and the adhesions were taken down. The cystic duct and cystic artery were then dissected out. Clips were placed on the proximal and distal portion of the cystic artery. A clip was placed on the distal portion of the cystic duct. The duct was then partially transected. The Arrow catheter was inserted into the duct and cholangiogram was then performed. There were no filling defects. Contrast made its way into the duodenum without difficulty. The Arrow catheter was then removed. Clips were placed on the proximal portion of the cystic duct and both the duct and artery were then completely transected. Hook cautery was used to dissect the gallbladder from the gallbladder fossa achieving hemostasis. There was a significant amount of edema around the gallbladder as well. Once the gallbladder was removed, it was placed in an Endobag and removed through the 12 mm trocar. The abdomen was then irrigated with copious amounts of irrigation and suction. The abdomen was then desufflated, the trocars were removed. The fascial defect of 12 mm trocar site was closed using 0 Vicryl. The skin was then closed using 4-0 Monocryl in subcuticular fashion. The abdomen was then washed and dried. Skin Affix was placed over the incisions. The patient tolerated the procedure well without any complications and was taken to the recovery room in stable condition. Job ID: [id number] DocumentID: [id number] Dictated Date: 02/14/2018 15:18:47 Paint Pourer Date: 02/14/2018 15:41:47 Dictated By: GOLD HDZ DO
--- NOTE | 2018-02-14 19:09 | Diagnostic Imaging Report ---
INDICATION: Abdominal pain. EXAMINATION: Fluoroscopy at 12:49 p.m. FINDINGS: Fluoroscopic assistance was provided for Dr. Hdz during his laparoscopic cholecystectomy. 12.4 seconds of fluoroscopy time was visualized. 59 images were received from the OR. There is opacification of the common bile duct via a cystic duct catheter. There is no definite defect within the duct to suggest a retained calculus. IMPRESSION: Fluoroscopic assistance was provided for Dr. Hdz. Dictated by: Dictated on workstation # [id number]
== END 2018-02-14 16:30 | disposition home or self-care (01) ==
LOC: EDUNIT# 05:59 → ER 06:01 → ENDO 10:49 → ICU 14:25 → ENDO 16:30
PROVIDERS: ATTEND Surgery
DX: K80.10 Calculus of gallbladder with chronic cholecystitis without obstruction (principal); I10 Essential (primary) hypertension
CPT/HCPCS: 36415; 74018; 74177; 80053; 81000; 83690; 85025; 87081; 94664; 96361; 96374; 96375

== ENCOUNTER 2018-11-02 12:47 | Outpatient (CLI) | payer BC ==
[~2018-11-02 12:47] MED LIST changes: +ACHD5005 PO; +FLUT16SP22; +LOSA100T57; +MONT10TA24; +RT-ALBUINH; +SERT50TA2
== END 2018-11-02 13:20 | disposition home or self-care (01) ==
LOC: SLEEP 12:47
PROVIDERS: ATTEND Nurse Practitioner Family
DX: G47.10 Hypersomnia, unspecified (principal); R05 Cough; R06.02 Shortness of breath; R53.83 Other fatigue; K21.9 Gastro-esophageal reflux disease without esophagitis; L30.9 Dermatitis, unspecified

== ENCOUNTER 2019-01-07 20:15 | Outpatient (CLI) | payer BC | END 2019-01-08 06:14 | disposition home or self-care (01) | LOC: SLEEP 20:15 | PROVIDERS: ATTEND Internal Medicine Critical Care Medicine | DX: G47.10 Hypersomnia, unspecified (principal); G47.36 Sleep related hypoventilation in conditions classified elsewhere; R06.00 Dyspnea, unspecified; J32.9 Chronic sinusitis, unspecified; R05 Cough; J30.9 Allergic rhinitis, unspecified; R06.83 Snoring | CPT/HCPCS: 95810 ==

== ENCOUNTER 2020-06-09 05:52 | Outpatient (RCR) | payer BC ==
[~2020-06-09] VITALS: Ht 188 cm; Wt 129.5 kg
[~2020-06-09 05:52] MED LIST changes: +AMOX500C2 PO; +BUDE10.2 IH; -CETI10TA20 PO; +CETI10TA49 PO; +LISI1TAB29 PO; -LISI1TAB6 PO; -MECL-106 PO; +MECL-149 PO; -MONT10TA24; +MONT10TA26
== END 2020-06-09 10:27 | disposition home or self-care (01) ==
LOC: PREOP 05:52
PROVIDERS: ATTEND Surgery
DX: Z01.812 Encounter for preprocedural laboratory examination (principal); Z20.828 Contact with and (suspected) exposure to other viral communicable diseases; Z86.010 Personal history of colon polyps; Z80.0 Family history of malignant neoplasm of digestive organs
CPT/HCPCS: 87635

== ENCOUNTER 2020-06-13 09:15 | Day surgery (SDC) | payer BC ==
[~2020-06-13] VITALS: Ht 188 cm; Wt 129.5 kg
[2020-06-13] MEDS ORDERED: LACTATED RINGERS 1,000 ML IV ONE (09:16)
[2020-06-13] MEDS ORDERED: LACTATED RINGERS 1,000 ML IV STA (09:18)
[2020-06-13 09:20] VITALS: BP 130/81
[2020-06-13] MEDS ORDERED: PROPOFOL INJECTION 50 ML IV ONE (09:34)
[2020-06-13] MEDS ORDERED: MIDAZOLAM 2 MG/2 ML (VERSED) VIAL ONE (09:34)
--- NOTE | 2020-06-13 09:36 | Progress Note-Pre Operative ---
Pre-Operative Progress Note H&P Reviewed The H&P was reviewed, patient examined and no changes noted. Date Seen by Provider: Jun 13, 2020 Time Seen by Provider: 09:36 Date H&P Reviewed: Jun 13, 2020 Time H&P Reviewed: 09:36 Pre-Operative Diagnosis: family hx colon cancer, hx polyps GOLD ANAND DO Jun 13, 2020 09:36
[2020-06-13 10:35] VITALS: BP 119/65
--- NOTE | 2020-06-13 10:38 | Progress Note-Post Operative ---
Post-Operative Progess Note Surgeon (s)/Management Lead (s) Surgeon GOLD ANAND DO Management Lead: na Pre-Operative Diagnosis family hx colon cancer, hx polyps Post-Operative Diagnosis colon polyps sigmoid x 2 Procedure & Operative Findings Date of Procedure 06/13/20 Procedure Performed/Findings colonoscopy c hot bx polypectomy x 2 Anesthesia Type per map mounter Estimated Blood Loss Estimated blood loss (mL): none Specimens/Packing Specimens Removed sigmoid polyps GOLD ANAND DO Jun 13, 2020 10:38
--- NOTE | 2020-06-13 10:38 | Discharge Inst-Simple/Standard ---
Discharge Inst-Standard Patient Instructions/Follow Up Plan of Care/Instructions/FU: 2 weeks abigail Activity as Tolerated: Yes Discharge Diet: Regular Diet GOLD ANAND DO Jun 13, 2020 10:38
[2020-06-13 10:40] VITALS: BP 120/65
[2020-06-13 10:45] VITALS: BP 125/69
[2020-06-13 11:05] VITALS: BP 129/79
[2020-06-13 11:15] VITALS: BP 129/79
--- NOTE | 2020-06-13 13:22 | Anesthesia-General Post-Op ---
MAC Patient Condition Mental Status/LOC: Same as Preop Cardiovascular: Satisfactory Nausea/Vomiting: Absent Respiratory: Satisfactory Pain: Controlled Complications: Absent Post Op Complications Complications None Follow Up Care/Instructions Patient Instructions None needed. Anesthesiology Discharge Order Discharge Order Patient is doing well, no complaints, stable vital signs, no apparent adverse anesthesia problems. No complications reported per nursing. DARIAN MANN CRNA Jun 13, 2020 13:22
--- NOTE | 2020-06-13 13:26 | OPERATIVE REPORT ---
DATE OF SERVICE: 06/13/2020 PREOPERATIVE DIAGNOSES: Family history of colon cancer, history of polyps. POSTOPERATIVE DIAGNOSES: Colon polyps x2, sigmoid colon. PROCEDURE: Colonoscopy with hot biopsy polypectomy x2. SURGEON: Gold Hdz DO ANESTHESIA: Per ELECTRICAL PROSPECTOR. ESTIMATED BLOOD LOSS: None. COMPLICATIONS: None. SPECIMENS: Sigmoid colon polyps. INDICATIONS: The patient is a 45-year-old male with family history of colon cancer and history of polyps. He understands risks and benefits of procedure and wishes to proceed with procedure. Consent was signed in the chart. DESCRIPTION OF PROCEDURE: The patient was taken to the endoscopy suite, placed in left lateral recumbent position. Timeout was performed. Digital rectal exam was performed. No palpable polyps, masses or ulcerations. Scope was inserted in the rectum, advanced all the way to the cecum with minimal difficulty. Prep was adequate with irrigation and suction. Scope was then slowly retracted back. There were no polyps, masses or ulcerations within the cecum, ascending, transverse, descending colon and sigmoid colon. There were 2 small polyps, which hot biopsy polypectomy was performed. Scope was then continuously retracted back into the rectum, where it was also retroflexed noting no other pathology. Scope was returned to its normal position, slowly withdrawn until completely removed. The patient tolerated procedure well without any complications, taken to recovery room in stable condition. RECOMMENDATIONS: The patient will need repeat colonoscopy in 5 years. Any issues before that be seen at that time. The patient will follow up in the office to discuss pathology results. Job ID: [id number] DocumentID: [id number] Dictated Date: 06/13/2020 10:41:01 [employer] Estate Legal Secretary Date: 06/13/2020 13:25:42 Dictated By: GOLD HDZ DO
== END 2020-06-13 11:15 | disposition home or self-care (01) ==
LOC: ENDO 09:15
PROVIDERS: ATTEND Surgery
DX: K63.5 Polyp of colon (principal); I10 Essential (primary) hypertension; K42.9 Umbilical hernia without obstruction or gangrene; G47.10 Hypersomnia, unspecified; K21.9 Gastro-esophageal reflux disease without esophagitis; E66.9 Obesity, unspecified; Z68.36 Body mass index [BMI] 36.0-36.9, adult; Z79.899 Other long term (current) drug therapy; Z88.5 Allergy status to narcotic agent; Z88.0 Allergy status to penicillin; Z88.8 Allergy status to other drugs, medicaments and biological substances; Z86.010 Personal history of colon polyps; Z80.0 Family history of malignant neoplasm of digestive organs
CPT/HCPCS: 88305

== ENCOUNTER 2022-02-26 10:25 | Outpatient (RCR) | payer BC | END 2022-03-27 | disposition home or self-care (01) | LOC: ONC 10:25 | PROVIDERS: ATTEND Internal Medicine Hematology & Oncology | DX: D72.829 Elevated white blood cell count, unspecified (principal); I10 Essential (primary) hypertension; E66.9 Obesity, unspecified | CPT/HCPCS: 99204 ==

== ENCOUNTER → 2022-02-26 | Outpatient (CLI) | payer BC ==
[~2022-02-26] MED LIST changes: -LISI1TAB29 PO; +LISI1TAB44 PO; +MONT-40; -MONT10TA26
--- NOTE | 2022-02-26 13:32 | Diagnostic Imaging Report ---
Indication: Asthma. Compared to 08/07/2017 Findings: There is some thickening of the airways and streaky perihilar interstitial opacities which may reflect asthma exacerbation or bronchitis. There is however no elevation of the lung volumes. No air trapping. No effusion, pneumothorax or lobar consolidation. Impression: Some streaky perihilar interstitial opacity and thickening of the airways but no consolidating pneumonia, air trapping or acute pleural pathology. Dictated by: Dictated on workstation # [id number]
== END ==
LOC: RAD 12:00
PROVIDERS: ATTEND Nurse Practitioner Family
DX: J45.20 Mild intermittent asthma, uncomplicated (principal)
CPT/HCPCS: 71046

== ENCOUNTER → 2022-03-25 | Outpatient (CLI) | payer BC ==
[~2022-03-25] MED LIST changes: +RT-ALBUTEROL SULF 2.5 MG/3 ML PRE-MIX VIAL INH ONE
== END ==
LOC: RT 13:00
PROVIDERS: ATTEND Nurse Practitioner Family
DX: J45.20 Mild intermittent asthma, uncomplicated (principal)
CPT/HCPCS: 94060; 94726; 94729

== ENCOUNTER 2022-05-29 11:14 | Outpatient (RCR) | payer BC ==
[~2022-05-29 11:14] MED LIST changes: +ALBU8.5H6; -RT-ALBUINH; -RT-ALBUTEROL SULF 2.5 MG/3 ML PRE-MIX VIAL INH ONE
== END 2022-06-26 | disposition home or self-care (01) ==
LOC: ONC 11:14
PROVIDERS: ATTEND Internal Medicine Hematology & Oncology
DX: D72.829 Elevated white blood cell count, unspecified (principal); I10 Essential (primary) hypertension; E66.9 Obesity, unspecified
CPT/HCPCS: 99213